=== PATIENT | male | born 2000 | race Caucasian/White ===

== ENCOUNTER 2023-12-06 12:55 | Emergency (ER) | payer BC, SELFPAY ==
[2023-12-06 13:08] VITALS: BP 169/95; PULSE 157; RESP 20; TEMP 36.8; O2SAT 100
--- NOTE | 2023-12-06 13:19 | ED.GENADULT ---
HPI - General Adult General Chief complaint: Anxiety Stated complaint: stopped drinking/side effect Source: patient Mode of arrival: ambulatory Limitations: no limitations History of Present Illness HPI narrative: 23-year-old male presented for complaint of panic attacks for about a week. Endorses feeling numbness to his body, hands and feet tingling at times, sweating, elevated heart rate and palpitations, and distorted vision. States these are that the symptoms that brought him here today. He also states he is 9 days without alcohol; He was drinking 1 pt of vodka daily. Smokes marijuana, Denies any other drug use. Denies hx anxiety/panic attacks or any diagnosis of mental illness. He denies abdominal pain, nausea or vomiting. He states he has been eating dinner daily and drinking water. He was brought in by a co-worker. Related Data Home Medications Medication Instructions Recorded Confirmed No Home Medications 12/06/23 12/06/23 Allergies Allergy/AdvReac Type Severity Reaction Status Date / Time No Known Drug Allergies Allergy Verified 05/07/13 14:59 Review of Systems Review of Systems: CONSTITUTIONAL: Denies body aches, fever, chills, or sweats. EYES: endorses visual changes, Denies redness, or discharge. ENT: Denies rhinorrhea, congestion, sore throat, or otalgia. CARDIOVASCULAR: reports palpitations, Denies chest pain, or edema. RESPIRATORY: Denies cough or dyspnea. GASTROINTESTINAL: Reports decreased po intake Denies abdominal pain, nausea, vomiting, or diarrhea. SKIN: Denies rash, itching, or wounds. MUSCULOSKELETAL: Denies back pain, joint pain, or myalgia. NEUROLOGIC: Denies headache, reports numbness, tingling to extremities PSYCH: Endorses anxiety All systems reviewed & are unremarkable except as noted in HPI and below PMFSH Comments At time of signature, I have reviewed and agree with nursing past medical, surgical, social and family history unless otherwise noted. Please see nursing chart for further information. There is no relevant family history pertinent to the presenting complaint Exam Narrative: GENERAL: Well-appearing, appears anxious; in no acute distress. HEAD: Normocephalic, atraumatic. EYES: EOMI. No redness or drainage. Conjunctivae normal. ENT: Mucous membranes pink and moist. No rhinorrhea. NECK: Normal AROM. CHEST: No respiratory distress. Clear to auscultation. HEART: Tachycardic, Regular rhythm. No murmur appreciated. Normal peripheral pulses. ABDOMEN: Soft, nontender, nondistended, normal active bowel sounds. SKIN: Warm, dry, no rash. Capillary refill normal. Normal skin turgor. NEURO: No focal deficits. Alert and oriented x3. Gait steady. PSYCH: Appears anxious, minimal eye contact. Answers questions appropriately, cooperative. Course Course Emergency Course: Patient is aware of diagnosis, understands and agrees to treatment plan. Anticipatory guidance given. Patient agrees to follow-up as directed and is aware of reasons to seek care at the emergency department. Portions of this record may have been created with voice recognition software Level of Care: Express Care Visit Vital Signs Vital signs: Vital Signs Temperature 98.3 F 12/06/23 13:08 Pulse Rate 157 H 12/06/23 13:08 Respiratory Rate 20 12/06/23 13:08 Blood Pressure 169/95 H 12/06/23 13:08 Pulse Oximetry 100 12/06/23 13:08 Oxygen Delivery Room Air 12/06/23 13:08 Temperature 98.3 F 12/06/23 13:08 Pulse Rate 157 H 12/06/23 13:08 Respiratory Rate 20 12/06/23 13:08 Blood Pressure 169/95 H 12/06/23 13:08 Pulse Oximetry 100 12/06/23 13:08 Oxygen Delivery Room Air 12/06/23 13:08 Transfer Transfered to: [facility] Transportation: Other (private vehicle) Transfer rationale: Pt is agreeable to transfer. Requests transfer to [facility] via private vehicle. Risks of transportation reviewed with pt including injury, worsening of con
[2023-12-06 13:33] VITALS: PULSE 107; O2SAT 100
== END 2023-12-06 13:37 | disposition short-term general hospital (02) ==
PROVIDERS: Emergency Provider Nurse Practitioner Family
DX: R00.2 Palpitations (principal)
CPT/HCPCS: 99212; G0463